=== PATIENT | female | born 1970 | race Hispanic/Latino ===

== ENCOUNTER 2024-05-17 09:38 | Outpatient (CLI) | payer OTHER ==
[2024-05-17] MEDS ORDERED: Magnevist 469MG/ML 20 ML VIAL ONE (09:42)
== END 2024-05-17 09:39 | disposition home or self-care (01) ==
LOC: CSHMRI 09:38
PROVIDERS: ATTEND Physician Assistant Medical
DX: R10.11 Right upper quadrant pain (principal); R79.89 Other specified abnormal findings of blood chemistry; R53.83 Other fatigue; K83.8 Other specified diseases of biliary tract
CPT/HCPCS: 74183; 76376